=== PATIENT | male | born 1985 | race Two or more races ===

== ENCOUNTER 2025-03-02 02:42 | Emergency (ER) | payer BC ==
[~2025-03-02] VITALS: Ht 165.1 cm; Wt 90.8 kg
--- NOTE | 2025-03-02 03:53 | Physician Documentation ---
History of Present Illness ~ Chief Complaint: Abdominal Pain w/vomiting Stated Complaint: ABDOMINAL PAIN Time Seen by MD: 03:35 HPI Patient presents to the emergency room with epigastric pain. Onset of symptoms this evening. Distant history of similar episode that resolved spontaneously. He had not seek medical attention at that time. That has not remember what he had for dinner. Positive nausea. Bowel movements reported to be regular. No prior abdominal surgeries. He has had nothing for his symptoms. Medication Reconciliation Allergies: Coded Allergies: No Known Allergies (Unverified , 03/02/25) Review of Systems ROS All review of systems negative except as per HPI Physical Exam Vital Signs: Temperature: 97.6, Source: Oral, Heart Rate: 57, Respiratory Rate: 16, BP: 116/74, Pulse Oximetry: 99, Weight: 90.800 Physical Exam General: Patient is awake, alert, oriented x4 in mild distress Head: Normocephalic and atraumatic. Eyes: Conjunctival normal. EOMI. PERRL. ENT: Mucous membranes moist. Neck: Supple, trachea is midline. Chest: Clear to auscultation bilaterally without rales, rhonchi, or wheezes. There is no accessory muscle use or retractions. Cardiac: Bradycardic and regular without murmurs, gallops, or rubs. Abd: Soft, nondistended, epigastric tenderness to palpation without peritonitis Progress Results/Orders Results/Orders Orders - SLICK BEAN MD Urinalysis, Cult If Indicated (03/02/25 02:51) Drug Screen, Urine (03/02/25 03:48) Completed Orders - SLICK BEAN MD Cbc/Diff (03/02/25 02:51) Lipase (03/02/25 02:51) CMP (03/02/25 02:51) Ondansetron Inj. (Zofran 4mg/2ml Vial) (03/02/25 03:50) Ketorolac Trometh 15mg/Ml Vial (Toradol (03/02/25 03:50) Famotidine/Pf Iv Inj (Pepcid Iv Inj) (03/02/25 03:50) Pantoprazole 40mg Iv (Protonix 40mg Iv) (03/02/25 03:50) Mag & Alum Hydrox/Simeth Susp (Maalox Or (03/02/25 03:50) Lidocaine 2% Viscous (Xylocaine 2% Visco (03/02/25 03:50) Normal Saline 1000ml (0.9% Sodium Chlori (03/02/25 03:55) Medications Received in ER Medications (Trade) Dose Ordered Sig/Lloyd Route PRN Reason Start Time Stop Time Status Last Admin Dose Admin (Zofran 4mg/2ml vial) 8 mg ONCE ONCE IV 03/02/25 03:50 03/02/25 03:51 DC 03/02/25 04:10 8 MG (Toradol injection) 15 mg ONCE ONCE IV 03/02/25 03:50 03/02/25 03:52 DC 03/02/25 04:10 15 MG (Pepcid IV inj) 40 mg ONCE ONCE IV 03/02/25 03:50 03/02/25 03:52 DC 03/02/25 04:09 40 MG (Protonix 40mg IV) 40 mg ONCE ONCE IV 03/02/25 03:50 03/02/25 03:52 DC 03/02/25 04:09 40 MG (Maalox oral suspension) 30 ml ONCE ONCE PO 03/02/25 03:50 03/02/25 03:52 DC 03/02/25 04:09 30 ML (Xylocaine 2% Viscous 15mL cup) 15 ml ONCE ONCE MM 03/02/25 03:50 03/02/25 03:52 DC 03/02/25 04:09 15 ML Sodium Chloride 1,000 ml @ 1,000 mls/hr ONCE ONCE IV 03/02/25 03:55 03/02/25 04:54 DC 03/02/25 04:10 1,000 MLS/HR Vital Signs 03/02/25 03/02/25 02:46 04:10 Temp 97.6 Pulse 57 Resp 16 15 B/P (MAP) 116/74 Pulse Ox 99 Laboratory Tests Test 03/02/25 03:49 White Blood Count 14.6 H Red Blood Count 5.40 Hemoglobin 15.6 Hematocrit 44.4 Mean Corpuscular Volume 82.3 Mean Corpuscular Hemoglobin 29.0 Mean Corpuscular Hemoglobin Concent 35.2 Red Cell Distribution Width 13.1 Platelet Count 266 Mean Platelet Volume 7.5 Neutrophils (%) (Auto) 82.8 H Lymphocytes (%) (Auto) 12.1 L Monocytes (%) (Auto) 3.9 Eosinophils (%) (Auto) 0.3 Basophils (%) (Auto) 0.9 Neutrophils # (Auto) 12.1 H Lymphocytes # (Auto) 1.8 Monocytes # (Auto) 0.6 Eosinophils # (Auto) 0.0 Basophils # (Auto) 0.1 CBC Comment Sodium Level 137 Potassium Level 4.1 Chloride Level 103 Carbon Dioxide Level 27.6 Anion Gap 6 L Blood Urea Nitrogen 22 H Creatinine 1.51 H Estimated GFR/1.73 m2 51 BUN/Creatinine Ratio 14.6 Glucose Level 168 H Calcium Level 9.2 Total Bilirubin 0.4 Aspartate Amino Transf (AST/SGOT) 35 Alanine Aminotransferase (ALT/SGPT) 55 Alkaline Phosphatase 87 Total Protein 7.9 Albumin 4.3 Globulin 3.6 Albumin/Globulin Ratio 1.2 Lipase 29 Chemistry Comments Medical Decision Making Findings Patient presents to the emergency room for evaluation of epigastric pain. Differentials include but are not limited to gastritis cholecystitis diverticulitis pancreatitis therefore emergent labs ordered. Mild elevation of white blood cell count concerning for possible intra-abdominal infection however patient has responded to GI cocktail in his feeling much better and he had not feel this represents intra-abdominal infection but rather a stress response to his vomiting. Departure Disposition: 01 HOME / SELF CARE / HOMELESS Impression: Primary Impression: Acute gastritis Condition: Improved Discharge Instructions: Gastritis, Adult Departure Forms: Excuse form Work or School Excused From: Work Excuse beginning now through the following date: Mar 03, 2025 May Return but still avoid physical Activity from now until: Mar 03, 2025 May Return to full physical activity as of: Mar 03, 2025 Referrals: NO PRIMARY CARE PROVIDER (PCP) Prescriptions Ondansetron 8mg ODT (Ondansetron Odt) 8 Mg Tab.rapdis 1 TAB PO Q6H for nausea/vomiting for 3 Days, #12 TAB 0 Refills Prov: SLICK BEAN MD 03/02/25 Pantoprazole Sodium (PROTONIX tablet) 40 Mg Tablet.dr 1 TAB PO DAILY for 30 Days, #30 TAB 0 Refills Prov: SLICK BEAN MD 03/02/25 Education Educated: Patient Educated regarding: diagnosis, treatment, need for follow up Signature Scribe Signature: No scribe Attestation: The note accurately reflects work and decisions made by me.Slick Bean MD 03/02/25 05:05 SLICK BEAN MD Mar 02, 2025 03:53
[2025-03-02] MEDS: famotidine/PF 10 mg/ml inj IV ONE (04:09)
[2025-03-02] MEDS: LIDOcaine 2% Viscous 15ml cup MM ONE (04:09)
[2025-03-02] MEDS: mag hydrox/Alum hydrox/simeth 30ml oral suspension PO ONE (04:09)
[2025-03-02] MEDS: normal saline 1000ml 1,000 ML IV ONE (04:10)
[2025-03-02] MEDS: ondansetron/PF 4mg/2ml inj IV ONE (04:10)
[2025-03-02] MEDS: ketorolac trometh 15mg/ml vial 15 MG/ML ML IV ONE (04:10)
[2025-03-02 04:14] LABS: MEAN PLATELET VOLUME 7.5 FL (7.4-10.4); RED CELL DISTRIBUTION WIDTH 13.1 % (11.5-14.5)
[2025-03-02 04:22] LABS: CREATININE 1.51 MG/DL (0.60-1.10); TOTAL CARBON DIOXIDE 27.6 MMOL/L (24-32); eCRCL 56 ML/MIN; eGFR 51 ML/MIN
[2025-03-02] MEDS ORDERED: ONDA-245 PO (05:04)
[2025-03-02] MEDS ORDERED: PANT-47 PO (05:04)
[2025-03-02 05:17] VITALS: BP 124/80; PULSE 80; RESP 12; TEMP 98.1; O2SAT 99
== END 2025-03-02 05:20 | disposition home or self-care (01) ==
LOC: ER 02:43
DX: K29.00 Acute gastritis without bleeding (principal)
CPT/HCPCS: 36415; 80053; 83690; 85025; 96361; 96374; 96375; 99284; J1885; J2405; J2470; J3490; J7030